=== PATIENT | male | born 2005 | race Caucasian/White ===

== ENCOUNTER 2024-04-23 13:55 | Inpatient (IN) | payer MEDICAID, SELFPAY ==
[2024-04-23] VITALS (10 sets, daily range): BP systolic 91–113; BP diastolic 40–76; PULSE 86–96; RESP 15–18; TEMP 36.6–37.3; O2SAT 98–100; BMI 21.6
--- NOTE | ~2024-04-23 | US_ITS ---
EXAMINATION: US ABDOMEN LIMITED CLINICAL INFORMATION: Epigastric and right lower quadrant pain. Nausea and vomiting. COMPARISON: None available. TECHNIQUE: Real-time imaging of the gallbladder and appendix was performed. FINDINGS: GALLBLADDER: The gallbladder is physiologically distended without evidence of stones, sludge, polyps, wall thickening or pericholecystic fluid. There is an aperistaltic, noncompressible, fluid-filled, blind ending tubular structure identified within the right lower quadrant. This tubular structure is dilated, measuring up to 1.6 cm in diameter. The wall appears thickened, measuring up to 0.6 cm. FREE FLUID: None. US/US abdomen limited IMPRESSION: Findings consistent with acute appendicitis. The gallbladder is normal in appearance. This critical result was discussed with Abbie Bose at 4:30 PM on 04/23/2024 and it was ascertained that the content and urgency of the report was understood at the time of direct communication.
--- NOTE | 2024-04-23 14:24 | ED_ITS ---
HPI - Abdominal Pain General Chief Complaint: Abdominal Pain Stated Complaint: ABD PAIN,VOMITING Time Seen by Provider: 04/23/24 17:44 Source: patient Mode of arrival: ambulatory Limitations: no limitations History of Present Illness ED Provider: christal NAVARRETE narrative: Patient is 19 years old complaining of pain mid abdomen and lower abdomen since 06:00 with nausea and vomiting threw up multiple times very uncomfortable on arrival patient had ultrasound done before my evaluation which shows acute appendicitis Related Data Home Medications ?Medication ?Instructions ?Recorded ?Confirmed No Known Home Meds 04/23/24 04/23/24 Allergies Allergy/AdvReac Type Severity Reaction Status Date / Time No Known Allergies Allergy Verified 04/23/24 14:27 [No Known Allergies*] Review of Systems Review of Systems Yes all other systems are reviewed and are negative [facility] Social History Social History Advance Directives: No Advance Directives Information Provided: No Do you have a plan to hurt others: No Plan Physical Exam ED Vital Signs: Vital Signs - 24 hr 04/23/24 14:22 04/23/24 17:45 04/23/24 17:57 Temperature 98.2 F 97.8 F Pulse Rate 94 92 Respiratory Rate 17 18 Blood Pressure 103/75 113/66 Pulse Oximetry 98 100 Oxygen Delivery Method Room Air Room Air BMI result Body Mass Index 21.6 Appearance: Alert. Oriented X3. In moderate distress actively vomiting Eyes: PERRLA, No Nystagmus ENT: Pharynx normal. Oral Mucosa moist Neck: Normal inspection. Neck supple. CVS: Normal heart rate and rhythm. Pulses normal. Respiratory: No respiratory distress. Equal air entry bilateral, no wheezing/rales/rhonchi Abdomen: Soft , tenderness right lower quadrant with guarding Bowel sounds are present, no mass palpable, no CVA tenderness Skin: Skin warm and dry. Normal skin color. Normal skin turgor. Extremities: No lower extremity edema. No calf tenderness Neuro: Oriented X 3. No motor deficit. Course Course Course Narrative: This is an RME: Additional HPI, ROS, PE not included below will be deferred to primary provider. RME assessment and note performed by: Abbie Bose PA-C This is a [id number]-male, with a hx of autism, who presents to the ER via EMS with complaints of abdominal pain since this morning. Patient states that he developed stomach pain starting at 6:00 a.m. this morning. Also endorsing nausea and vomiting. He states that he took a laxative earlier, denies diarrhea. Plan: Labs, UA, ultrasound 1635 - Received phone call from [facility] - US consistent with acute appendicitis. Informed charge nurse to bring patient back reinaldo 1653-patient still remains to be in the waiting room, reached out to Dr. Pierre, who prefers CT of the abdomen. Patient will be brought back Medical Decision Making Medical Decision Making [facility] Narrative: Patient with acute right lower abdomen been ultrasound showed acute appendicitis slightly elevated WBC count case discussed with Dr. Pierre surgeon will admit the patient to his service for appendectomy Differential Diagnosis Differential Diagnoses: The differential diagnosis associated with the presentation includes Appendicitis/gastroenteritis Admission/Observation Consideration of admission/observation: Escalation of care including admission/observation considered Consult Healthcare Provider Management of the patient was discussed with: [employer] Maker Surgeon Dr. Pierre Lab Data [facility] Lab Attestation statement: I reviewed the patient's lab results. 04/23/24 15:23 04/23/24 15:23 Labs: Lab Results 04/23/24 04/23/24 Range/Units 15:23 17:05 WBC 12.3 H (4.8-10.8) X10*3/uL RBC 5.14 (4.60-5.80) X10*6/uL Hgb 15.1 (14.0-18.0) g/dl Hct 44.1 (42.0-52.0) % MCV 85.8 (80.0-98.0) fL MCH 29.4 (27.0-33.0) pg MCHC 34.2 (31.0-36.0) g/dl RDW 12.8 (11.0-16.0) % Plt Count 191 (160-400) X10*3/uL MPV 10.6 (9.4-12.4) fL Immature Gran % (Auto) 0.4 (0.0-0.4) % Neut % (Auto) 86.2 H (45-73) % Lymph % (Auto) 7.6 L (20-40) % [facility] % (Auto) 5.5 (2-11) % Eos % (Auto) 0.1 (0-4) % Baso % (Auto) 0.2 (0-2) % Lymph # (Auto) 0.9 L (1.2-4.9) X10*3/uL [facility] # (Auto) 0.7 (0.1-1.2) X10*3/uL Eos # (Auto) 0.0 (0.0-0.4) X10*3/uL Baso # (Auto) 0.0 (0.0-0.2) X10*3/uL Abs Immat Gran (auto) 0.05 H (0.00-0.03) X10*3/uL Absolute Neuts (auto) 10.6 H (2.0-8.3) x10*3/uL Absolute Nucleated RBC 0.000 (0.0-0.012) X10*3/uL Nucleated RBC % (auto) 0.0 (0.0-0.2) /100WBC Sodium 141 (135-145) mmol/L Potassium 4.8 (3.3-5.1) mmol/L Chloride 105 (96-108) mmol/L Carbon Dioxide 26 (22-29) mmol/L Anion Gap 15 (12-20) BUN 13 (9-16) mg/dL Creatinine 0.89 (0.5-1.4) mg/dL Estim Creat Clear Calc 109.3 Estimated GFR > 60 Random Glucose 107 (60-115) mg/dL Lactic Acid 1.4 (0.5-2.0) mmol/L Calcium 10.0 (8.4-10.2) mg/dL Magnesium 1.7 (1.6-2.6) mg/dL Total Bilirubin 1.4 H (0.0-1.0) mg/dL Direct Bilirubin 0.5 (0.0-0.5) mg/dL AST 23 (5-37) U/L ALT 47 H (0-40) U/L Alkaline Phosphatase 114 (39-117) U/L Total Protein 7.7 (6.5-8.0) g/dL Albumin 4.8 (3.5-5.0) g/dL Lipase 14 (8-78) U/L Influenza Type A (PCR) NEGATIVE (Negative) Influenza Type B (PCR) NEGATIVE (Negative) RSV RNA Qual (PCR) NEGATIVE (Negative) SARS-CoV-2 RNA (RT-PCR) NEGATIVE (Negative) Independent Interpretation I performed an independent interpretation of an: Ultrasound Radiology Impression Discussion of test interpretation with radiology: I have reviewed the radiologist's reading. Radiologist Impression: [address] [id number] Ultrasound Report Signed Patient: Jim Loo MR#: [id number] : 2005 Acct:[id number] Age/Sex: 19 / M ADM Date: 04/23/24 Loc: .ED Attending Dr: Ordering Physician: Abbie Bose Date of Service: 04/23/24 Procedure(s): US abdomen limited Accession Number(s): [id number] cc: [facility]; Abbie Bose~ EXAMINATION: US ABDOMEN LIMITED CLINICAL INFORMATION: Epigastric and right lower quadrant pain. Nausea and vomiting. COMPARISON: None available. TECHNIQUE: Real-time imaging of the gallbladder and appendix was performed. FINDINGS: GALLBLADDER: The gallbladder is physiologically distended without evidence of stones, sludge, polyps, wall thickening or pericholecystic fluid. There is an aperistaltic, noncompressible, fluid-filled, blind ending tubular structure identified within the right lower quadrant. This tubular structure is dilated, measuring up to 1.6 cm in diameter. The wall appears thickened, measuring up to 0.6 cm. FREE FLUID: None. US/US abdomen limited IMPRESSION: Findings consistent with acute appendicitis. The gallbladder is normal in appearance. This critical result was discussed with Abbie Bose at 4:30 PM on 04/23/2024 and it was ascertained that the content and urgency of the report was understood at the time of direct communication. Medications Administered Generic Name Dose Route Start Last Admin Trade Name Freq PRN Reason Stop Dose Admin Lactated Ringer's 1,000 mls @ 100 mls/hr 04/23/24 18:15 04/23/24 19:08 Lr IVCONT 100 mls/hr .Q10H FELISA Administration Piperacillin Sod/Tazobactam 50 mls @ 100 mls/hr 04/23/24 19:00 04/23/24 19:11 Sod 3.375 gm/ Sodium Chloride IV Infused Q6H FELISA Infusion Discontinued Medications Generic Name Dose Route Start Last Admin Trade Name Freq PRN Reason Stop Dose Admin Sodium Chloride 1,000 mls @ 999 mls/hr 04/23/24 17:44 04/23/24 19:11 Ns IV 04/23/24 18:44 Infused .Q1H1M ONE Infusion Piperacillin Sod/Tazobactam 50 mls @ 100 mls/hr 04/23/24 18:15 04/23/24 20:48 Sod 2.25 gm/ Sodium Chloride IV Not Given Q12H FELISA Morphine Sulfate 4 mg 04/23/24 17:44 04/23/24 17:57 Morphine Sulfate 4 Mg/Ml Cartridge IVPUSH 04/23/24 17:45 4 mg ONCE ONE Administration Protocol Ondansetron HCl 4 mg 04/23/24 14:26 04/23/24 14:29 Ondansetron Odt 4 Mg Tab.Rapdis TRANSLINGU 04/23/24 14:27 4 mg ONCE ONE Administration Ondansetron HCl 4 mg 04/23/24 17:44 04/23/24 17:58 Ondansetron Hcl 4 Mg/2 Ml Vial IVPUSH 04/23/24 17:45 4 mg ONCE ONE Administration Discharge Plan Discharge Clinical Impression: Acute appendicitis Patient Disposition: Admitted As Inpatient
[2024-04-23] MEDS: Ondansetron ODT 4 MG TAB.RAPDIS TRANSLINGU (14:29)
[2024-04-23 15:31] LABS: MANUAL DIFF FLAG NO
[2024-04-23 15:33] LABS: Basophils Percent Auto 0.2 % (0-2); Eosinophils Percent Auto 0.1 % (0-4); Hematocrit 44.1 % (42.0-52.0); Hemoglobin 15.1 g/dl (14.0-18.0); Imm Gran Abs Auto 0.05 X10*3/uL (0.00-0.03); Imm Gran Pct Auto 0.4 % (0.0-0.4); Lymphocytes Absolute Auto 0.9 X10*3/uL (1.2-4.9); Lymphocytes Percent Auto 7.6 % (20-40); Mean Corpuscular HGB Conc 34.2 g/dl (31.0-36.0); Mean Corpuscular Hemoglobin 29.4 pg (27.0-33.0); Mean Corpuscular Volume 85.8 fL (80.0-98.0); Mean Platelet Volume 10.6 fL (9.4-12.4); Monocytes Absolute Auto 0.7 X10*3/uL (0.1-1.2); Monocytes Percent Auto 5.5 % (2-11); Neutrophils Absolute Auto 10.6 x10*3/uL (2.0-8.3); Neutrophils Percent Auto 86.2 % (45-73); Platelet Count 191 X10*3/uL (160-400); Red Blood Count 5.14 X10*6/uL (4.60-5.80); Red Cell Distribution Width 12.8 % (11.0-16.0); White Blood Count 12.3 X10*3/uL (4.8-10.8)
[2024-04-23 15:51] LABS: Alanine Aminotransferase 47 U/L (0-40); Albumin Level 4.8 g/dL (3.5-5.0); Alkaline Phosphatase 114 U/L (39-117); Anion Gap 15 (12-20); Aspartate Amino Transferase 23 U/L (5-37); Bilirubin Direct 0.5 mg/dL (0.0-0.5); Bilirubin Total 1.4 mg/dL (0.0-1.0); Blood Urea Nitrogen 13 mg/dL (9-16); Carbon Dioxide 26 mmol/L (22-29); Chloride 105 mmol/L (96-108); Creatinine Clr Calc Pharmacy 109.3; Estimated Glomerular Filt Rate > 60; Glucose Random 107 mg/dL (60-115); Lipase 14 U/L (8-78); Magnesium 1.7 mg/dL (1.6-2.6); Potassium 4.8 mmol/L (3.3-5.1); Sodium 141 mmol/L (135-145); Total Protein 7.7 g/dL (6.5-8.0)
[2024-04-23 16:11] LABS: Influenza A PCR NEGATIVE (Negative); Influenza B PCR NEGATIVE (Negative); Resp Syncy Virus RNA Qual PCR NEGATIVE (Negative); SARS COV2 PCR INHOUSE NEGATIVE (Negative)
[2024-04-23 17:20] LABS: Lactic Acid 1.4 mmol/L (0.5-2.0)
[2024-04-23] MEDS: Morphine Sulfate 4 MG/ML CARTRIDGE IVPUSH (17:57)
[2024-04-23] MEDS: ondansetron HCL 4 MG/2 ML VIAL IVPUSH (17:58)
[2024-04-23] MEDS: 0.9 % Sodium Chloride 1,000 ML 999 ML IV (17:58)
--- NOTE | 2024-04-23 18:04 | PC.NURSE ---
patient awake and alert. skin pale, warm, dry, resp even and non labored. c/o 10/10 sharp mid abdominal pain starting today w/ n/v. leaning forward, guarding abdomen. IV established and medicated per order. Patient aware of plan of care for admit
[2024-04-23] MEDS: Piperacillin Sodium/Tazobactam 3.375 GM in 0.9 % Sodium Chloride 50 ML IV (18:32)
--- NOTE | 2024-04-23 18:51 | PHA.MEDREC ---
Pharmacy Consult ? Medication Reconciliation Pharmacy has completed the medication reconciliation.
[2024-04-23] MEDS: Lactated Ringers 1,000 ML 100 ML IVCONT (19:08)
--- NOTE | 2024-04-23 23:00 | PC.NURSE ---
Assumed care of patient at this time. A/ox4. IVF in place. Independent OOB. C/o pain medicated with dilaudid prn. Awaiting bed assignment for admission.
[2024-04-23] MEDS: HYDROmorphone HCl 1 MG/ML SYRINGE 0.5 MG IVPUSH (23:37)
[2024-04-23] MEDS: 0.9 % Sodium Chloride Flush 3 ML SYRINGE IVFLUSH (23:37)
[2024-04-24] VITALS (16 sets, daily range): BP systolic 98–119; BP diastolic 52–73; PULSE 72–104; RESP 8–20; TEMP 36.4–37.2; O2SAT 95–100
[2024-04-24] MEDS: Piperacillin Sodium/Tazobactam 3.375 GM in 0.9 % Sodium Chloride 50 ML IV ×4 (00:14→19:33)
[2024-04-24] MEDS: Lactated Ringers 1,000 ML 100 ML IVCONT ×2 (05:50→16:35)
[2024-04-24] MEDS: HYDROmorphone HCl 1 MG/ML SYRINGE 0.5 MG IVPUSH ×3 (07:48→21:56)
--- NOTE | 2024-04-24 08:26 | P.HPGS_ITS ---
<Statement entered by Andrew Pierre MD - 04/24/24 08:40> As noted History of Present Illness History of Present Illness Date of Service: 04/24/24 <Soco Cueva PA-C - Last Filed: 04/24/24 08:33> 04/24/24 <Andrew Pierre MD - Last Filed: 04/24/24 08:41> Chief complaint: abd pain <Soco Cueva PA-C - Last Filed: 04/24/24 08:33> Narrative: Jim Loo is a 19 year old male with PMH of autism who presented to the ED yesterday with complaints of abdominal pain. He reports he awoke yesterday morning with periumbical pain. He tried to eat but vomited. His pain worsened in severity and migrated to the right lower abdomen and persisted. He therefore called EMS and came to the ED. He was found to be tender on the right abdomen. CBC, BMP, LFTs were obtained which was significant for leukocytosis of 12.3 and total bilirubin of 1.4. ABD US was performed which showed an a peristaltic, noncompressible, dilated, fluid-filled, blind ending tubular structure identified within the right lower quadrant with wall thickening. He denies similar episodes of pain before. He denies previous abdominal surgery. <Soco Cueva PA-C - Last Filed: 04/24/24 08:33> Review of Systems Constitutional: Constitutional: Denies chills and Denies fever(s) <JANUSZ Castillo Last Filed: 04/24/24 08:33> ENT: Denies dizziness <JANUSZ Castillo Last Filed: 04/24/24 08:33> Cardiovascular: Cardiovascular: Denies chest pain, Denies palpitations and Denies dyspnea <JANUSZ Castillo Last Filed: 04/24/24 08:33> Respiratory: Respiratory: Denies dyspnea <JANUSZ Castillo Last Filed: 04/24/24 08:33> Gastrointestinal: Gastrointestinal: Reports as per HPI, Reports abdominal pain, Reports constipation, Denies diarrhea and Reports vomiting <JANUSZ Castillo Last Filed: 04/24/24 08:33> Genitourinary: Genitourinary: Denies hematuria and Denies dysuria <JANUSZ Castillo Last Filed: 04/24/24 08:33> Integumentary/Breasts: Skin/Breast: Denies rash and Denies jaundice <JANUSZ Castillo Last Filed: 04/24/24 08:33> Neurologic: Denies dizziness <JANUSZ Castillo Last Filed: 04/24/24 08:33> Endocrine: Endocrine: Denies palpitations <JANUSZ Castillo Last Filed: 04/24/24 08:33> COUNT INCLUDES THE [facility] Social History Social History: Social History Advance Directives: No Advance Directives Information Provided: No Do you have a plan to hurt others: No Plan <JANUSZ Castillo Last Filed: 04/24/24 08:33> Meds Allergies/Adverse reactions: Allergies Allergy/AdvReac Type Severity Reaction Status Date / Time No Known Allergies Allergy Verified 04/23/24 14:27 [No Known Allergies*] <JANUSZ Castillo Last Filed: 04/24/24 08:33> Active Medications: Current Medications Acetaminophen (Acetaminophen 325 Mg Tablet) 650 mg PO Q6H PRN PRN Reason: Pain, Mild (Pain Scale 1-3) Al Hydroxide/Mg Hydroxide (Magnesium Hydrox/Alum Hydrox 30 Ml Oral.Susp) 30 ml PO Q4H PRN PRN Reason: Heartburn/Nausea Hydromorphone HCl (Hydromorphone Hcl 1 Mg/Ml Syringe) 0.5 mg IVPUSH Q4H PRN; Protocol PRN Reason: Pain, Severe (Pain Scale 7-10) Last Admin: 04/24/24 07:48 Dose: 0.5 mg Lactated Ringer's (Lr) 1,000 mls @ 100 mls/hr IVCONT .Q10H FELISA Last Admin: 04/24/24 05:50 Dose: 100 mls/hr Piperacillin Sod/Tazobactam (Sod 3.375 gm/ Sodium Chloride) 50 mls @ 100 mls/hr IV Q6H [facility] Last Infusion: 04/24/24 07:07 Dose: Infused Ondansetron HCl (Ondansetron Hcl 4 Mg/2 Ml Vial) 4 mg IVPUSH Q8H PRN PRN Reason: Nausea and Vomiting Sodium Chloride (0.9 % Sodium Chloride Flush 3 Ml Syringe) 3 ml IVFLUSH QSHIFT [facility] Last Admin: 04/23/24 23:37 Dose: 3 ml Temazepam (Temazepam 15 Mg Capsule) 15 mg PO BEDTIME PRN PRN Reason: Insomnia <JANUSZ Castillo Last Filed: 04/24/24 08:33> Home medications: Home Medications ?Medication ?Instructions ?Recorded ?Confirmed ?Last Taken ?Type No Known Home Meds 04/23/24 04/23/24 Unknown History <JANUSZ Castillo Last Filed: 04/24/24 08:33> Physical Exam Vital Signs: Vital Signs: Last Vital Signs Temp 98.8 F 04/24/24 07:48 Pulse 87 04/24/24 07:48 Resp 18 04/24/24 07:48 BP 100/53 L 04/24/24 07:48 Pulse Ox 99 04/24/24 07:48 O2 Del Method Room Air 04/24/24 07:48 BMI result Body Mass Index 21.6 <JANUSZ Castillo Last Filed: 04/24/24 08:33> Const: General: comfortable, no acute distress and alert <JANUSZ Castillo Last Filed: 04/24/24 08:33> Orientation/consciousness: patient oriented x3 <JANUSZ Castillo Last Filed: 04/24/24 08:33> Resp: Effort & Inspection: normal respiratory effort <JANUSZ Castillo Last Filed: 04/24/24 08:33> GI: Inspection: Yes normal to inspection and No scar <JANUSZ Castillo Last Filed: 04/24/24 08:33> Palpation (GI): Soft to palpation, Tenderness to palpation present (GI) in the RLQ and with rebound tenderness; Rovsing's sign negative and no guarding <JANUSZ Castillo Last Filed: 04/24/24 08:33> Percussion: Yes normal to percussion <JANUSZ Castillo Filed: 04/24/24 08:33> Skin: General skin exam: no rashes or lesions noted and no jaundice <JANUSZ Castillo Last Filed: 04/24/24 08:33> Neuro: General: patient oriented x3 <JANUSZ Castillo Filed: 04/24/24 08:33> Results Results Labs: Short CBC 04/23/24 Range/Units 15:23 WBC 12.3 H (4.8-10.8) X10*3/uL Hgb 15.1 (14.0-18.0) g/dl Hct 44.1 (42.0-52.0) % Plt Count 191 (160-400) X10*3/uL BMP 04/23/24 15:23 Sodium 141 Potassium 4.8 Chloride 105 Carbon Dioxide 26 BUN 13 Creatinine 0.89 Calcium 10.0 Liver Function 04/23/24 Range/Units 15:23 Total Bilirubin 1.4 H (0.0-1.0) mg/dL Direct Bilirubin 0.5 (0.0-0.5) mg/dL AST 23 (5-37) U/L ALT 47 H (0-40) U/L Alkaline Phosphatase 114 (39-117) U/L Albumin 4.8 (3.5-5.0) g/dL <JANUSZ Castillo Filed: 04/24/24 08:33> Abdominal ultrasound report/results: report reviewed and image reviewed <JANUSZ Castillo Filed: 04/24/24 08:33> Assessment and Plan (1) Acute appendicitis: Status: Acute <JANUSZ Castillo Filed: 04/24/24 08:33> 19 year old male with PMH of autism with acute onset of periumbilical pain yesterday that localized to the RLQ with RLQ tenderness on exam, leukocytosis and ABD US demonstrating aperistaltic, noncompressible, dilated, fluid-filled, blind ending tubular structure identified within the right lower quadrant with wall thickening consistent with acute appendicitis. He has been admitted to the surgical service for further treatment. Treatment options were discussed with the patient and his mother by phone and he elected to proceed with surgery. Risks, benefits, alternatives of laparoscopic possible open appendectomy were reviewed with the patient and included but not limited to bleeding, infection, numbness, pain, scarring, bowel or bladder injury or staple line leak and the patient wishes to proceed. He has been added onto the OR schedule for today. <Soco Cueva PA-C - Last Filed: 04/24/24 08:33> Quality Stroke Does the patient have a stroke diagnosis?: No <Andrew Pierre MD - Last Filed: 04/24/24 08:41> VTE Prior VTE?: No <Andrew Pierre MD - Last Filed: 04/24/24 08:41> VTE Risk Level:: Surgical - low <Soco Cueva PA-C - Last Filed: 04/24/24 08:33> VTE Device Contraindication: Treatment Not Indicated <Soco Cueva PA-C - Last Filed: 04/24/24 08:33> VTE Drug Contraindication: Treatment Not Indicated <Soco Cueva PA-C - Last Filed: 04/24/24 08:33> Procedures Date of Service Date of Service: 04/24/24 <Soco Cueva PA-C - Last Filed: 04/24/24 08:33> 04/24/24 <Andrew Pierre MD - Last Filed: 04/24/24 08:41>
--- NOTE | 2024-04-24 12:57 | HO.ANESPROP2 ---
PMFSH Active Problems Active Problems: All Active Problems Acute appendicitis (Acute) Family History Family history of problems with anesthesia: No Surgical History History of Problems with Anesthesia: No Social History Social History Patient Tobacco Use Status: Never used Tobacco Meds Allergies Allergy/AdvReac Type Severity Reaction Status Date / Time No Known Allergies Allergy Verified 04/23/24 14:27 [No Known Allergies*] Active Medications: Current Medications Acetaminophen (Acetaminophen 325 Mg Tablet) 650 mg PO Q6H PRN PRN Reason: Pain, Mild (Pain Scale 1-3) Al Hydroxide/Mg Hydroxide (Magnesium Hydrox/Alum Hydrox 30 Ml Oral.Susp) 30 ml PO Q4H PRN PRN Reason: Heartburn/Nausea Hydromorphone HCl (Hydromorphone Hcl 1 Mg/Ml Syringe) 0.5 mg IVPUSH Q4H PRN; Protocol PRN Reason: Pain, Severe (Pain Scale 7-10) Last Admin: 04/24/24 12:10 Dose: 0.5 mg Lactated Ringer's (Lr) 1,000 mls @ 100 mls/hr IVCONT .Q10H FELISA Last Admin: 04/24/24 05:50 Dose: 100 mls/hr Piperacillin Sod/Tazobactam (Sod 3.375 gm/ Sodium Chloride) 50 mls @ 100 mls/hr IV Q6H [facility] Last Admin: 04/24/24 12:42 Dose: 100 mls/hr Ondansetron HCl (Ondansetron Hcl 4 Mg/2 Ml Vial) 4 mg IVPUSH Q8H PRN PRN Reason: Nausea and Vomiting Sodium Chloride (0.9 % Sodium Chloride Flush 3 Ml Syringe) 3 ml IVFLUSH QSHIFT [facility] Last Admin: 04/24/24 09:13 Dose: Not Given Temazepam (Temazepam 15 Mg Capsule) 15 mg PO BEDTIME PRN PRN Reason: Insomnia Home Medications ?Medication ?Instructions ?Recorded ?Confirmed ?Last Taken ?Type No Known Home Meds 04/23/24 04/23/24 Unknown History Exam Height,Weight and Vital Signs: Height 5 ft 5 in Weight 58.9 kg Last Vital Signs Temp 98.8 F 04/24/24 12:52 Pulse 88 04/24/24 12:52 Resp 20 04/24/24 12:52 BP 114/56 L 04/24/24 12:52 Pulse Ox 97 04/24/24 12:52 O2 Del Method Room Air 04/24/24 12:52 Pertinent Lab Results Pertinent Lab Results: Laboratory Tests 04/23/24 04/23/24 15:23 17:05 WBC 12.3 H RBC 5.14 Hgb 15.1 Hct 44.1 MCV 85.8 MCH 29.4 MCHC 34.2 RDW 12.8 Plt Count 191 MPV 10.6 Immature Gran % (Auto) 0.4 Neut % (Auto) 86.2 H Lymph % (Auto) 7.6 L [place] % (Auto) 5.5 Eos % (Auto) 0.1 Baso % (Auto) 0.2 Lymph # (Auto) 0.9 L [place] # (Auto) 0.7 Eos # (Auto) 0.0 Baso # (Auto) 0.0 Abs Immat Gran (auto) 0.05 H Absolute Neuts (auto) 10.6 H Absolute Nucleated RBC 0.000 Nucleated RBC % (auto) 0.0 Sodium 141 Potassium 4.8 Chloride 105 Carbon Dioxide 26 Anion Gap 15 BUN 13 Creatinine 0.89 Estim Creat Clear Calc 109.3 Estimated GFR > 60 Random Glucose 107 Lactic Acid 1.4 Calcium 10.0 Magnesium 1.7 Total Bilirubin 1.4 H Direct Bilirubin 0.5 AST 23 ALT 47 H Alkaline Phosphatase 114 Total Protein 7.7 Albumin 4.8 Lipase 14 Influenza Type A (PCR) NEGATIVE Influenza Type B (PCR) NEGATIVE RSV RNA Qual (PCR) NEGATIVE SARS-CoV-2 RNA (RT-PCR) NEGATIVE Airway Mallampati Class: II TM Dist: >3cm Neck ROM: Full Assessment and Plan Assessment Anesthesia Assessment: Anesthesia Plan Discussed and Chart Reviewed Final Anesthetic Review Family History of Problems with Anesthesia: No History of Problems with Anesthesia: No NPO: Yes ASA Class: II and Emergency Final Preanesthetic Review: No Changes in Pt Med Stat, Meds/Allgs Chart Reviewed, Consent Obtained/Reviewed and Anes Risks/Benef Reviewed Patient Risk: Intermediate Procedure Risk: Intermediate Anesthetic Plan Anesthetic Plan: GA Disposition: Standard PACU
--- NOTE | 2024-04-24 13:59 | W.PM.OPN ---
Operative Note Operative Note Date of Service: 04/24/24 Narrative: Preoperative diagnosis: [] Acute appendicitis Postop diagnosis: [] The same Procedure [] laparoscopic appendectomy Surgeon: [] Ignacio Human Resources Manager Manufacturing: [] Anay Type of Anesthesia: [] General Indication for surgery: [] Edematous inflamed appendix. No gross evidence of perforation. Periappendiceal TURbid fluid Findings: [] Patient brought to the operating room, placed on operative table in supine position, after adequate level of general anesthesia was induced, the patient's abdomen is prepped and draped in usual sterile fashion. Using a supraumbilical curvilinear incision, Salinas technique was used to insufflate abdominal cavity to 15 mm of CO2. Lower midline and suprapubic ports were placed under direct laparoscopic view, the patient placed in Trendelenburg position, tilted to the left. Findings were as noted above. Edematous inflamed appendix was grasped with laparoscopic graspers and brought onto the field. It's mesentery was sequentially taken down using double firing of ligature device. Appendix was then transected the cecal base using endoscopic SOMMER stapler. Specimen was placed in an Endo-Catch bag, a retrieved through the umbilical port. Abdominal cavity was very copiously irrigated, and secured hemostasis. All ports removed under direct laparoscopic view. Wounds were closed in the following manner; umbilical wound has fascia reapproximated using interrupted 0 Vicryl sutures. Skin wounds were closed using subcuticular 4-0 Vicryl sutures followed by Steri-Strips and sterile dressings. Wounds were infiltrated 0.5% Marcaine at completion. Sponge, needle, and instrument counts reported correct. Patient tolerated the procedure well and emerged from anesthesia stable condition. EBL minimal
[2024-04-24] MEDS: fentaNYL citrate/PF 100 MCG/2 ML VIAL 50 MCG IVPUSH ×2 (14:13→14:25)
[2024-04-24] MEDS: ondansetron HCL 4 MG/2 ML VIAL IVPUSH (14:13)
[2024-04-24] MEDS: Ketorolac Tromethamine 30 MG/ML VIAL IVPUSH (16:35)
[2024-04-24] MEDS: 0.9 % Sodium Chloride Flush 3 ML SYRINGE IVFLUSH (16:37)
[2024-04-24] MEDS: Acetaminophen 325 MG TABLET 650 MG PO (19:26)
[2024-04-24] MEDS: oxyCODONE HCl Immed Release 5 MG TABLET PO (19:26)
--- NOTE | 2024-04-24 23:18 | PC.NURSE ---
This RN assumed care at 1900, Pt is Alert/oriented, reporting increasing abd pain, s/p Lap appi. Lung sound clear throughout, hypoactive bowel sounds through out, has not passed flatulence/stool yet. Pt ambulates to bathroom with IV pole and a steady gait, with slight rigidity with ROM, with guarding of the abd. Skin dry and intact. IVF running, No apparent distress noted at this time, pt calm and cooperative. Call arango within reach
[2024-04-25] MEDS: Piperacillin Sodium/Tazobactam 3.375 GM in 0.9 % Sodium Chloride 50 ML IV ×4 (01:00→18:55)
[2024-04-25] MEDS: Ketorolac Tromethamine 30 MG/ML VIAL IVPUSH ×2 (01:07→07:25)
[2024-04-25 02:48] VITALS: RESP 16
[2024-04-25] MEDS: HYDROmorphone HCl 1 MG/ML SYRINGE 0.5 MG IVPUSH ×2 (02:48→12:33)
[2024-04-25] MEDS: Lactated Ringers 1,000 ML 100 ML IVCONT ×2 (02:50→12:26)
[2024-04-25 04:20] VITALS: BP 108/53; PULSE 67; RESP 16; TEMP 36.6; O2SAT 98
[2024-04-25] MEDS: Acetaminophen 325 MG TABLET 650 MG PO ×2 (04:34→15:55)
[2024-04-25] MEDS: oxyCODONE HCl Immed Release 5 MG TABLET PO ×4 (04:35→22:31)
[2024-04-25 07:31] VITALS: BP 107/58; PULSE 61; RESP 14; TEMP 36.3; O2SAT 99
--- NOTE | 2024-04-25 09:31 | P.PNGS_ITS ---
Subjective Subjective Date of Service: 04/25/24 Interval history: Does not really convey much verbally - has known autism He did ask a long he will continued to have pain No events reported by the nurse Tolerating diet Physical Exam 2 Vital Signs: Vital Signs: Last Vital Signs Temp 97.4 F 04/25/24 07:31 Pulse 61 04/25/24 07:31 Resp 14 04/25/24 07:31 BP 107/58 L 04/25/24 07:31 Pulse Ox 99 04/25/24 07:31 O2 Del Method Room Air 04/25/24 07:31 O2 Flow Rate 1 04/24/24 15:47 BMI result Body Mass Index 21.6 Const: General: no acute distress Resp: Effort & Inspection: normal respiratory effort Cardio: Rate: regular rate GI: Other: Dressings dry Palpation (GI): Soft to palpation, not firm and no guarding Objective Data Active Medications Acetaminophen (Acetaminophen 325 Mg Tablet) 650 mg PO Q6H PRN PRN Reason: Pain, Mild (Pain Scale 1-3) Last Admin: 04/25/24 04:34 Dose: 650 mg Documented By: NASRIN Al Hydroxide/Mg Hydroxide (Magnesium Hydrox/Alum Hydrox 30 Ml Oral.Susp) 30 ml PO Q4H PRN PRN Reason: Heartburn/Nausea Hydromorphone HCl (Hydromorphone Hcl 1 Mg/Ml Syringe) 0.5 mg IVPUSH Q4H PRN; Protocol PRN Reason: Pain, Severe (Pain Scale 7-10) Last Admin: 04/25/24 02:48 Dose: 0.5 mg Documented By: NASRIN Lactated Ringer's (Lr) 1,000 mls @ 100 mls/hr IVCONT .Q10H [facility] Last Infusion: 04/25/24 07:23 Dose: 100 mls/hr Documented By: SHEREEN Piperacillin Sod/Tazobactam (Sod 3.375 gm/ Sodium Chloride) 50 mls @ 100 mls/hr IV Q6H [facility] Last Infusion: 04/25/24 07:22 Dose: Infused Documented By: SHEREEN Ketorolac Tromethamine (Ketorolac Tromethamine 30 Mg/Ml Vial) 30 mg IVPUSH Q6H PRN PRN Reason: abdominal pain Last Admin: 04/25/24 07:25 Dose: 30 mg Documented By: SHEREEN Ondansetron HCl (Ondansetron Hcl 4 Mg/2 Ml Vial) 4 mg IVPUSH Q8H PRN PRN Reason: Nausea and Vomiting Oxycodone HCl (Oxycodone Hcl Immed Release 5 Mg Tablet) 5 mg PO Q4H PRN PRN Reason: Pain, Moderate(Pain Scale 4-6) Last Admin: 04/25/24 09:04 Dose: 5 mg Documented By: SHEREEN Sodium Chloride (0.9 % Sodium Chloride Flush 3 Ml Syringe) 3 ml IVFLUSH [facility] Last Admin: 04/25/24 07:23 Dose: Not Given Documented By: SHEREEN Non-Admin Reason: IV Running Temazepam (Temazepam 15 Mg Capsule) 15 mg PO BEDTIME PRN PRN Reason: Insomnia Labs 04/23/24 15:23 04/23/24 15:23 Microbiology Microbiology Results: Microbiology 04/23/24 17:05 Blood Culture - Preliminary Blood - Venous No growth after 24 hours. 04/23/24 17:05 Blood Culture - Preliminary Blood - Venous No growth after 24 hours. Procedures Date of Service Date of Service: 04/25/24 Progress Note: A&P Assessment and plan (1) Acute appendicitis: Status: Acute Assessment and Plan: Status post laparoscopic appendectomy Looks well Says he still has pain and does not feel ready to be discharged today Clinically doing well Encourage ambulation Pain management Plan to DC home tomorrow Time Spent With Patient Time: Total time managing care of this patient today ____ minutes. Quality Stroke Does the patient have a stroke diagnosis?: No VTE Prior VTE?: No VTE Risk Level:: Surgical - low VTE Device Contraindication: Treatment Not Indicated VTE Drug Contraindication: Treatment Not Indicated
--- NOTE | 2024-04-25 10:22 | HO.POSTANES ---
Post Anesthesia Evaluation Post Anesthesia Evaluation Date of Service: 04/24/24 Vital Signs: Vital Signs Temp Pulse Resp BP Pulse Ox O2 Del Method 04/25/24 07:31 97.4 F 61 14 107/58 L 99 Room Air 04/25/24 04:20 97.9 F 67 16 108/53 L 98 Room Air 04/25/24 02:48 16 04/24/24 23:38 97.5 F 75 16 100/56 L 95 Room Air Anesthesia: General Endotracheal-GETA Mental Status: Awake Pain Control: Satisfactory Nausea/Vomiting: None Hydration: Adequate Anesthesia-Related Issues: No Anes. Related Issues
--- NOTE | 2024-04-25 11:43 | MHC.CM.PN ---
pt lives with parents has no services has own ride home
[2024-04-25 15:46] VITALS: BP 108/53; PULSE 84; RESP 16; TEMP 36.2; O2SAT 100
--- NOTE | 2024-04-25 21:00 | PC.NURSE ---
Addendum entered by Emily Melo RN 04/25/24 23:45: Pt ambulated around unit about 300ft, with standby assist. Pt is changed to low fall risk Pt has taken a shower independently. Original Note: This RN assumed care at 1900, Pt AOx4, pt reports 6/10 abd pain, respirations even and unlabored, lung sounds clear. BSx4 guarding noted, pt is passing stool and gas. Skin is dry and intact. Pt is calm, and cooperative.
[2024-04-25] MEDS: Temazepam 15 MG CAPSULE PO (22:31)
[2024-04-26] VITALS: BP 139/79; PULSE 84; RESP 16; TEMP 36.3; O2SAT 94
[2024-04-26] MEDS: 0.9 % Sodium Chloride Flush 3 ML SYRINGE IVFLUSH ×2 (00:58→07:40)
[2024-04-26] MEDS: Piperacillin Sodium/Tazobactam 3.375 GM in 0.9 % Sodium Chloride 50 ML IV ×2 (02:14→07:40)
[2024-04-26] MEDS: HYDROmorphone HCl 1 MG/ML SYRINGE 0.5 MG IVPUSH (02:21)
[2024-04-26 07:37] VITALS: BP 119/82; PULSE 67; RESP 14; TEMP 36; O2SAT 98
[2024-04-26] MEDS: Acetaminophen 325 MG TABLET 650 MG PO (07:46)
[2024-04-26] MEDS: oxyCODONE HCl Immed Release 5 MG TABLET PO (07:46)
--- NOTE | 2024-04-26 09:56 | P.PNGS_ITS ---
Subjective Subjective Date of Service: 04/26/24 Interval history: Patient describes an incisions Tolerating diet No events reported overnight Physical Exam 2 Vital Signs: Vital Signs: Last Vital Signs Temp 96.8 F 04/26/24 07:37 Pulse 67 04/26/24 07:37 Resp 14 04/26/24 07:37 BP 119/82 04/26/24 07:37 Pulse Ox 98 04/26/24 07:37 O2 Del Method Room Air 04/26/24 07:37 O2 Flow Rate 1 04/24/24 15:47 BMI result Body Mass Index 21.6 Const: General: comfortable and no acute distress Resp: Effort & Inspection: normal respiratory effort Cardio: Rate: regular rate GI: Other: Incisions clean and dry Palpation (GI): Soft to palpation, not firm and no guarding Objective Data Active Medications Acetaminophen (Acetaminophen 325 Mg Tablet) 650 mg PO Q6H PRN PRN Reason: Pain, Mild (Pain Scale 1-3) Last Admin: 04/26/24 07:46 Dose: 650 mg Documented By: SHEREEN Al Hydroxide/Mg Hydroxide (Magnesium Hydrox/Alum Hydrox 30 Ml Oral.Susp) 30 ml PO Q4H PRN PRN Reason: Heartburn/Nausea Hydromorphone HCl (Hydromorphone Hcl 1 Mg/Ml Syringe) 0.5 mg IVPUSH Q4H PRN; Protocol PRN Reason: Pain, Severe (Pain Scale 7-10) Last Admin: 04/26/24 02:21 Dose: 0.5 mg Documented By: NASRIN Piperacillin Sod/Tazobactam (Sod 3.375 gm/ Sodium Chloride) 50 mls @ 100 mls/hr IV Q6H [facility] Last Infusion: 04/26/24 08:24 Dose: Infused Documented By: SHEREEN Ketorolac Tromethamine (Ketorolac Tromethamine 30 Mg/Ml Vial) 30 mg IVPUSH Q6H PRN PRN Reason: abdominal pain Last Admin: 04/25/24 07:25 Dose: 30 mg Documented By: SHEREEN Ondansetron HCl (Ondansetron Hcl 4 Mg/2 Ml Vial) 4 mg IVPUSH Q8H PRN PRN Reason: Nausea and Vomiting Oxycodone HCl (Oxycodone Hcl Immed Release 5 Mg Tablet) 5 mg PO Q4H PRN PRN Reason: Pain, Moderate(Pain Scale 4-6) Last Admin: 04/26/24 07:46 Dose: 5 mg Documented By: SHEREEN Sodium Chloride (0.9 % Sodium Chloride Flush 3 Ml Syringe) [facility] Last Admin: 04/26/24 07:40 Dose: 3 ml Documented By: SHEREEN Temazepam (Temazepam 15 Mg Capsule) 15 mg PO BEDTIME PRN PRN Reason: Insomnia Last Admin: 04/25/24 22:31 Dose: 15 mg Documented By: ORLANDV Labs 04/23/24 15:23 04/23/24 15:23 Microbiology Microbiology Results: Microbiology 04/23/24 17:05 Blood Culture - Preliminary Blood - Venous No growth after 48 hours. 04/23/24 17:05 Blood Culture - Preliminary Blood - Venous No growth after 48 hours. Procedures Date of Service Date of Service: 04/26/24 Progress Note: A&P Assessment and plan (1) Acute appendicitis: Status: Acute Assessment and Plan: Status post lap appy Looks well As per nurse, much better pain control Tolerating diet No fever Exam benign Okay to DC home today Discussed with parents Time Spent With Patient Time: Total time managing care of this patient today ____ minutes. Quality Stroke Does the patient have a stroke diagnosis?: No VTE Prior VTE?: No VTE Risk Level:: Surgical - low VTE Device Contraindication: Treatment Not Indicated VTE Drug Contraindication: Treatment Not Indicated
--- NOTE | 2024-04-26 10:26 | MHC.CM.PN ---
pt dcd home self care
--- NOTE | 2024-04-28 09:57 | P.DS_ITS ---
DS: Providers Provider Date of Service: 04/26/24 Date of admission: 04/23/24 18:07 Date of discharge: 04/26/24 Primary care physician: [facility] Attending physician on admission: Andrew Pierre Attending physician on discharge: Miko Leyva DS: Diagnosis Discharge Diagnosis (1) Acute appendicitis: Status: Acute DS: Summary Hospital Course Hospital Course: HPI AT ADMISSION: Jim Loo is a 19 year old male with PMH of autism who presented to the ED yesterday with complaints of abdominal pain. He reports he awoke yesterday morning with periumbical pain. He tried to eat but vomited. His pain worsened in severity and migrated to the right lower abdomen and persisted. He therefore called EMS and came to the ED. He was found to be tender on the right abdomen. CBC, BMP, LFTs were obtained which was significant for leukocytosis of 12.3 and total bilirubin of 1.4. ABD US was performed which showed an aperistaltic, noncompressible, dilated, fluid-filled, blind ending tubular structure identified within the right lower quadrant with wall thickening. He denies similar episodes of pain before. He denies previous abdominal surgery. HOSPITAL COURSE: He was admitted to the surgical service for further treatment of the acute appendicitis. Treatment options were discussed with the patient and mother and they elected to proceed with surgery. He was added onto the OR sched ule that day for laparoscopic possible open appendectomy. On 04/24/24, a laparoscopic appendectomy was performed by Dr. Pierre without complication. The patient tolerated the procedure well. He had an uncomplicated recovery course. On POD #1, he felt well and was tolerating a solid diet without nausea or vomiting, had good pain control and was ambulating without difficulty. He was hemodynamically stable. His abdomen was benign with appropriate post op tenderness and clean and intact dressings. On POD #2, he felt ready for discharge. He was discharged to home on 04/26/24 in stable condition. He is to follow up in the office in 1 week. Status at Discharge Functional status at discharge: independent ambulation Overall status at discharge: patient is progressing back to baseline Time Attestation Discharge Coordination Time (in mins): 30 Quality: Safe Use of Opioids Does Pt have an Active Cancer Diagnosis on the Problem List?: No Quality: Stroke Does the patient have a stroke diagnosis?: No Physical Exam Vital Signs: Vital Signs: Last Vital Signs Temp 96.8 F 04/26/24 07:37 Pulse 67 04/26/24 07:37 Resp 14 04/26/24 07:37 BP 119/82 04/26/24 07:37 Pulse Ox 98 04/26/24 07:37 O2 Del Method Room Air 04/26/24 07:37 O2 Flow Rate 1 04/24/24 15:47 BMI result Body Mass Index 21.6 Resp: Effort & Inspection: normal respiratory effort GI: Inspection: No distended and Yes incision (incisions clean) Palpation (GI): Soft to palpation, Tenderness to palpation present (GI) (mild incisional) and no guarding Skin: General skin exam: no rashes or lesions noted DS: Data Data Completed and Pending Pending studies at discharge: Pending at discharge 04/24/24 13:53 Surgical [PTH] Routine Labs on day of discharge: Preliminary micro results at discharge 04/23/24 17:05 Blood Culture - Preliminary Blood - Venous No growth after 48 hours. 04/23/24 17:05 Blood Culture - Preliminary Blood - Venous No growth after 48 hours. Discharge Plan Discharge Anticipated Discharge Date/Time: 04/25/24 09:30 Patient Disposition: Home, Self-Care Discharge Diagnosis: Acute appendicitis Referrals: [facility] [Primary Care Provider] - 1 Week Andrew Pierre MD [Physician] - 1 Week Discharge Medications: New hydrocodone-acetaminophen 5-325 mg tablet 1 tab PO Q4-6H PRN (Reason: pain) Qty: 30 0RF Rx Instructions: Partial Fill upon patient request. docusate sodium [Colace] 100 mg capsule 100 mg PO BID PRN (Reason: constipation) Qty: 30 0RF oxycodone-acetaminophen [Percocet] 5-325 mg tablet 1 tab PO Q4-6H PRN (Reason: pain) Qty: 15 0RF Rx Instructions: Partial Fill upon patient request. ibuprofen 600 mg tablet 600 mg PO Q6H PRN (Reason: pain) Qty: 30 0RF Discharge Orders: Discharge Order (Routine); Ordered 04/26/24 Ordered By: Miko Leyva Diet: Advance to usual diet Activity on Discharge: No heavy lifting Stand Alone Forms: Patient Portal Discharge page Print Language: Thai Activity Restrictions/Additional Instructions: Ice to wound 20 minutes several times today and tomorrow. May shower in 2 days. Remove outside dressing only. Leave Steri-Strips intact. No strenuous activities Care Plan Goals: Convalescence from surgery Health Concerns: acute appendicitis s/p laparoscopic appendectomy Plan of Treatment: F/u in office in 1 week Assessment: Stable Discharge Date/Time: 04/26/24 11:36
== END 2024-04-26 11:36 | disposition home or self-care (01) | DRG 234 ==
LOC: HO.ED 18:00 → HO.EDOVER 18:15 → HO.S3 04-24 15:02
PROVIDERS: Physician Assistant Medical; Admitting Provider Surgery; Emergency Provider Internal Medicine; Visit Provider Surgery
PROC: 0DTJ4ZZ Resection of Appendix, Percutaneous Endoscopic Approach (ICD-10-PCS; CPT 44970; principal; 2024-04-24 12:50)
DX: K35.80 Unspecified acute appendicitis (principal); Z20.822 Contact with and (suspected) exposure to COVID-19
CPT/HCPCS: 44970; 0241U; 36415; 76705; 80048; 80076; 83605; 83690; 83735; 85025; 87040; 88304; 99221; 99285; J0131; J1100; J1170; J1885; J2250; J2270; J2405; J2543; J2704; J2795; J3010; J7120

== ENCOUNTER → 2024-04-23 18:07 | Outpatient (BNV) | payer MEDICAID, SELFPAY | PROVIDERS: Admitting Provider Surgery; Emergency Provider Internal Medicine; Visit Provider Physician Assistant Surgical | DX: K35.80 Unspecified acute appendicitis (principal) | CPT/HCPCS: 44970; 99024; 99222; 99238 ==